=== PATIENT | female | born 1990 | race African-American/Black ===

== ENCOUNTER 2020-03-08 21:02 | Emergency (ER) | payer MEDICAID ==
[~2020-03-08] VITALS: Ht 165.1 cm; Wt 64.0 kg
[2020-03-08] MEDS ORDERED: ACETAMINOPHEN 325MG TABLET PO ONE (22:00)
[2020-03-08 22:37] VITALS: BP 115/85
== END 2020-03-08 22:38 | disposition home or self-care (01) ==
LOC: ER 21:02
DX: M54.5 Low back pain (principal); W10.8XXA Fall (on) (from) other stairs and steps, initial encounter; Y93.89 Activity, other specified; Y92.89 Other specified places as the place of occurrence of the external cause
CPT/HCPCS: 72100; 93005; 99285

== ENCOUNTER 2020-03-31 04:34 | Emergency (ER) | payer MEDICAID ==
[~2020-03-31] VITALS: Ht 160 cm; Wt 68.0 kg
[2020-03-31 04:36] VITALS: BP 137/77
== END 2020-03-31 05:42 | disposition left against medical advice (07) ==
LOC: ER 05:26
DX: Z53.21 Procedure and treatment not carried out due to patient leaving prior to being seen by health care provider (principal)